=== PATIENT | female | born 1965 | race Caucasian/White ===

== ENCOUNTER 2017-06-02 21:13 | Emergency (ER) | payer MEDICARE, OTHER ==
[~2017-06-02] VITALS: Ht 167.6 cm; Wt 117.6 kg
[~2017-06-02 21:13] MED LIST: ALBU18HF2 INH; ALBU8.5H8 IH; AZIT250T PO; CLIN-80 PO; DULO-31 PO; ERYT-111 PO; FLUT16SP26 BOTHNARES; HYDR25TA4 PO; LEVO150T62 PO; LYR25C PO; METF500T PO; METO50TA7 PO; TIOT18CA7 IH; TOP100T PO; TRAM50TA2 PO; ZOC40T PO
[2017-06-02 21:24] VITALS: BP 145/75
[2017-06-02] MEDS ORDERED: BUPIVAcaine/PF 2.5 mg/ml (0.25%) 30ml vial IJ ONE (22:05)
== END 2017-06-02 23:46 | disposition home or self-care (01) ==
LOC: ER 21:14
DX: L02.416 Cutaneous abscess of left lower limb (principal); G62.9 Polyneuropathy, unspecified; E78.00 Pure hypercholesterolemia, unspecified; I10 Essential (primary) hypertension; J44.9 Chronic obstructive pulmonary disease, unspecified; E11.9 Type 2 diabetes mellitus without complications; M19.90 Unspecified osteoarthritis, unspecified site; G89.29 Other chronic pain; Z86.718 Personal history of other venous thrombosis and embolism; Z86.711 Personal history of pulmonary embolism; Z86.14 Personal history of Methicillin resistant Staphylococcus aureus infection; Z98.890 Other specified postprocedural states; Z90.49 Acquired absence of other specified parts of digestive tract; Z88.8 Allergy status to other drugs, medicaments and biological substances; Z88.2 Allergy status to sulfonamides; Z88.1 Allergy status to other antibiotic agents; Z79.899 Other long term (current) drug therapy
CPT/HCPCS: 10060; 99283; A6449; J3490

== ENCOUNTER 2017-08-16 19:29 | Emergency (ER) | payer MEDICARE, OTHER ==
[~2017-08-16] VITALS: Ht 167.6 cm; Wt 123.0 kg
[~2017-08-16 19:29] MED LIST changes: -CLIN-80 PO; +CLIN300C85 PO
[2017-08-16 19:35] VITALS: BP 132/68
== END 2017-08-16 21:41 | disposition home or self-care (01) ==
LOC: ER 19:29
DX: Z48.01 Encounter for change or removal of surgical wound dressing (principal); I10 Essential (primary) hypertension; J44.9 Chronic obstructive pulmonary disease, unspecified; E11.40 Type 2 diabetes mellitus with diabetic neuropathy, unspecified; G89.29 Other chronic pain; E78.00 Pure hypercholesterolemia, unspecified; Z79.84 Long term (current) use of oral hypoglycemic drugs; Z90.49 Acquired absence of other specified parts of digestive tract; Z90.710 Acquired absence of both cervix and uterus; Z98.890 Other specified postprocedural states; Z87.891 Personal history of nicotine dependence; Z88.2 Allergy status to sulfonamides; Z88.1 Allergy status to other antibiotic agents; Z79.899 Other long term (current) drug therapy
CPT/HCPCS: 99283; A6266

== ENCOUNTER 2018-06-14 08:44 | Day surgery (SDC) | payer MEDICARE, MEDICAID ==
[2018-06-14] VITALS (8 sets, daily range): BP systolic 116–146; BP diastolic 58–79
[~2018-06-14] VITALS: Ht 167.6 cm; Wt 130.1 kg
[~2018-06-14 08:44] MED LIST changes: +CLIN-96 PO; -CLIN300C85 PO; +LIDOcaine 1% 30ml preserv. free vial SQ STA
[2018-06-14] MEDS ORDERED: FURO-150 PO (09:34)
[2018-06-14] MEDS ORDERED: LITH300C PO (09:34)
[2018-06-14] MEDS ORDERED: SIMV40TA PO (09:34)
[2018-06-14] MEDS ORDERED: CARV12.5 PO (09:34)
[2018-06-14] MEDS ORDERED: POTA8CAP9 PO (09:34)
[2018-06-14] MEDS ORDERED: HYDR25TA4 PO (09:34)
[2018-06-14] MEDS ORDERED: ASPI81TA52 PO (09:34)
[2018-06-14] MEDS ORDERED: BUPR300T53 PO (09:34)
[2018-06-14] MEDS ORDERED: LOSA100T57 PO (09:34)
[2018-06-14] MEDS ORDERED: TRAZ-251 PO (09:34)
[2018-06-14] MEDS ORDERED: LEVO150T8 PO (09:34)
[2018-06-14] MEDS ORDERED: TIOT4MIS5 (09:34)
[2018-06-14] MEDS ORDERED: VORT10TA PO (09:34)
[2018-06-14] MEDS ORDERED: GABA-530 PO (09:34)
[2018-06-14] MEDS ORDERED: ALBU18HF2 INH (09:34)
== END 2018-06-14 12:10 | disposition home or self-care (01) ==
LOC: SSTAY O 08:44
PROVIDERS: ATTEND Radiology Diagnostic Radiology
DX: M79.89 Other specified soft tissue disorders (principal); G62.9 Polyneuropathy, unspecified; E78.00 Pure hypercholesterolemia, unspecified; I10 Essential (primary) hypertension; J44.9 Chronic obstructive pulmonary disease, unspecified; Z87.01 Personal history of pneumonia (recurrent); G47.30 Sleep apnea, unspecified; E11.9 Type 2 diabetes mellitus without complications; M19.90 Unspecified osteoarthritis, unspecified site; G89.29 Other chronic pain; F41.9 Anxiety disorder, unspecified; F31.9 Bipolar disorder, unspecified; E66.01 Morbid (severe) obesity due to excess calories; Z90.49 Acquired absence of other specified parts of digestive tract; Z98.890 Other specified postprocedural states; Z87.891 Personal history of nicotine dependence; Z90.710 Acquired absence of both cervix and uterus; Z88.8 Allergy status to other drugs, medicaments and biological substances; Z88.1 Allergy status to other antibiotic agents; Z88.2 Allergy status to sulfonamides
CPT/HCPCS: 20206; 76942; J3490; 27470; 88173; 88305

== ENCOUNTER 2018-08-12 21:49 | Emergency (ER) | payer MEDICARE, MEDICAID ==
[~2018-08-12] VITALS: Ht 167.6 cm; Wt 131.0 kg
[~2018-08-12 21:49] MED LIST changes: -ALBU8.5H8 IH; +ASPI81TA52 PO; -AZIT250T PO; +BUPR300T53 PO; +CARV12.5 PO; -CLIN-96 PO; -DULO-31 PO; -ERYT-111 PO; -FLUT16SP26 BOTHNARES; +FURO-150 PO; +GABA-530 PO; -LEVO150T62 PO; +LEVO150T8 PO; -LIDOcaine 1% 30ml preserv. free vial SQ STA; +LITH300C PO; +LOSA100T57 PO; -LYR25C PO; -METF500T PO; -METO50TA7 PO; +POTA8CAP9 PO; +SIMV40TA PO; -TIOT18CA7 IH; +TIOT4MIS5; -TOP100T PO; -TRAM50TA2 PO; +TRAZ-251 PO; +VORT10TA PO; -ZOC40T PO
[2018-08-12 22:09] VITALS: BP 125/86
== END 2018-08-13 00:02 | disposition home or self-care (01) ==
LOC: ER 21:50
DX: E87.8 Other disorders of electrolyte and fluid balance, not elsewhere classified (principal); F43.9 Reaction to severe stress, unspecified; E78.00 Pure hypercholesterolemia, unspecified; I10 Essential (primary) hypertension; J44.9 Chronic obstructive pulmonary disease, unspecified; G47.30 Sleep apnea, unspecified; E11.9 Type 2 diabetes mellitus without complications; E03.9 Hypothyroidism, unspecified; M19.90 Unspecified osteoarthritis, unspecified site; G89.29 Other chronic pain; Z86.14 Personal history of Methicillin resistant Staphylococcus aureus infection; Z90.49 Acquired absence of other specified parts of digestive tract; Z90.710 Acquired absence of both cervix and uterus; Z88.2 Allergy status to sulfonamides; Z86.711 Personal history of pulmonary embolism; Z88.1 Allergy status to other antibiotic agents; Z88.8 Allergy status to other drugs, medicaments and biological substances; Z79.82 Long term (current) use of aspirin; Z79.899 Other long term (current) drug therapy; Z98.890 Other specified postprocedural states
CPT/HCPCS: 82948; 93005; 99283

== ENCOUNTER 2019-01-17 13:44 | Emergency (ER) | payer MEDICARE, MEDICAID ==
[~2019-01-17] VITALS: Ht 167.6 cm; Wt 133.0 kg
[~2019-01-17 13:44] MED LIST changes: +POTA8CAP20 PO; -POTA8CAP9 PO
[2019-01-17 14:44] LABS: BASOPHILS # (AUTO) 0.2 X10'3 (0-0.2); BASOPHILS % (AUTO) 1.3 % (0-1); EOSINOPHILS # (AUTO) 0.2 X10'3 (0-0.9); EOSINOPHILS % (AUTO) 1.4 % (0-6); HEMATOCRIT 38.9 % (35.0-45.0); HEMOGLOBIN 13.5 g/dl (12.0-16.0); LYMPHOCYTES # (AUTO) 3.4 X10'3 (1.1-4.8); LYMPHOCYTES % (AUTO) 24.8 % (21-51); MEAN CORPUSCULAR HEMOGLOBIN 34.8 PG (27.0-31.0); MEAN CORPUSCULAR HGB CONC 34.6 g/dL (33.0-36.5); MEAN CORPUSCULAR VOLUME 100.8 FL (78-98); MEAN PLATELET VOLUME 8.2 FL (7.4-10.4); MONOCYTES # (AUTO) 0.7 X10'3 (0-0.9); NEUTROPHILS # (AUTO) 9.4 X10'3 (1.8-7.7); NEUTROPHILS % (AUTO) 67.5 % (42-75); PLATELET COUNT 261 X10'3 (140-440); RED BLOOD COUNT 3.86 X10'6 (4.20-5.60); RED CELL DISTRIBUTION WIDTH 14.3 % (11.5-14.5); WHITE BLOOD COUNT 13.9 X10'3 (4.5-11.0)
[2019-01-17 14:53] LABS: ALBUMIN 3.8 G/DL (3.4-5.0); ANION GAP 9 (8-16); BILIRUBIN,TOTAL 0.4 MG/DL (0.1-1.0); BLOOD UREA NITROGEN 16 MG/DL (7-18); BUN/CREATININE RATIO 15.8 (6.6-38.0); CALCIUM 9.4 MG/DL (8.5-10.1); CHLORIDE 98 MMOL/L (99-107); CREATININE 1.01 MG/DL (0.40-0.90); GLUCOSE 276 MG/DL (70-104); POTASSIUM 3.4 MMOL/L (3.5-5.1); SODIUM 138 MMOL/L (135-145); TOTAL CARBON DIOXIDE 30.9 MMOL/L (24-32); TOTAL PROTEIN 7.1 G/DL (6.4-8.2); eGFR 57 ML/MIN
[2019-01-17 14:54] LABS: ALANINE AMINOTRANSFERASE 37 U/L (12-78); ALBUMIN/GLOBULIN RATIO 1.2 (1.1-1.5); ALKALINE PHOSPHATASE 79 IU/L (46-116); ASPARTATE AMINO TRANSFERASE 12 U/L (10-37)
[2019-01-17] MEDS ORDERED: ipratropium/albuterol 3ml nebule NEB ONE (15:30)
[2019-01-17 15:56] VITALS: BP 132/91
== END 2019-01-17 16:00 | disposition home or self-care (01) ==
LOC: ER 13:45
DX: J44.1 Chronic obstructive pulmonary disease with (acute) exacerbation (principal); E11.42 Type 2 diabetes mellitus with diabetic polyneuropathy; E78.00 Pure hypercholesterolemia, unspecified; I10 Essential (primary) hypertension; G47.30 Sleep apnea, unspecified; M19.90 Unspecified osteoarthritis, unspecified site; G89.29 Other chronic pain; F41.9 Anxiety disorder, unspecified; F31.9 Bipolar disorder, unspecified; F17.200 Nicotine dependence, unspecified, uncomplicated; Z86.711 Personal history of pulmonary embolism; Z86.14 Personal history of Methicillin resistant Staphylococcus aureus infection; Z90.49 Acquired absence of other specified parts of digestive tract; Z90.710 Acquired absence of both cervix and uterus; Z98.890 Other specified postprocedural states; Z60.2 Problems related to living alone; Z88.2 Allergy status to sulfonamides; Z88.1 Allergy status to other antibiotic agents; Z88.8 Allergy status to other drugs, medicaments and biological substances; Z79.82 Long term (current) use of aspirin; Z79.899 Other long term (current) drug therapy
CPT/HCPCS: 36415; 71045; 80053; 84484; 85025; 93005; 94640; 94760; 99284

== ENCOUNTER 2019-04-22 13:14 | Emergency (ER) | payer MEDICARE, MEDICAID ==
[~2019-04-22] VITALS: Ht 167.6 cm; Wt 129.6 kg
[2019-04-22] MEDS ORDERED: morphine 4 MG/ML inj SYRINge IV PRN (13:50)
[2019-04-22] MEDS ORDERED: normal saline 1000ML IV soln IVB ONE (13:50)
[2019-04-22] MEDS ORDERED: ondansetron/PF 4mg/2ml inj IV ONE (13:50)
[2019-04-22 14:47] LABS: BASOPHILS # (AUTO) 0.1 X10'3 (0-0.2); BASOPHILS % (AUTO) 0.7 % (0-1); EOSINOPHILS # (AUTO) 0.1 X10'3 (0-0.9); EOSINOPHILS % (AUTO) 1.2 % (0-6); HEMATOCRIT 37.2 % (35.0-45.0); HEMOGLOBIN 12.8 g/dl (12.0-16.0); LYMPHOCYTES # (AUTO) 1.6 X10'3 (1.1-4.8); LYMPHOCYTES % (AUTO) 14.1 % (21-51); MEAN CORPUSCULAR HEMOGLOBIN 33.9 PG (27.0-31.0); MEAN CORPUSCULAR HGB CONC 34.4 g/dL (33.0-36.5); MEAN CORPUSCULAR VOLUME 98.4 FL (78-98); MEAN PLATELET VOLUME 7.6 FL (7.4-10.4); MONOCYTES # (AUTO) 0.3 X10'3 (0-0.9); NEUTROPHILS # (AUTO) 8.9 X10'3 (1.8-7.7); PLATELET COUNT 236 X10'3 (140-440); RED BLOOD COUNT 3.78 X10'6 (4.20-5.60); RED CELL DISTRIBUTION WIDTH 14.8 % (11.5-14.5)
[2019-04-22 15:01] LABS: ALANINE AMINOTRANSFERASE 26 U/L (12-78); ALBUMIN/GLOBULIN RATIO 1.3 (1.1-1.5); ALKALINE PHOSPHATASE 71 IU/L (46-116); ANION GAP 5 (8-16); ASPARTATE AMINO TRANSFERASE 14 U/L (10-37); BILIRUBIN,TOTAL 0.4 MG/DL (0.1-1.0); BLOOD UREA NITROGEN 13 MG/DL (7-18); BUN/CREATININE RATIO 15.9 (6.6-38.0); CALCIUM 10.2 MG/DL (8.5-10.1); CHLORIDE 105 MMOL/L (99-107); CREATININE 0.82 MG/DL (0.40-0.90); GLUCOSE 190 MG/DL (70-104); POTASSIUM 4.3 MMOL/L (3.5-5.1); SODIUM 141 MMOL/L (135-145); TOTAL CARBON DIOXIDE 30.6 MMOL/L (24-32); TOTAL PROTEIN 7.2 G/DL (6.4-8.2); eGFR 73 ML/MIN
[2019-04-22 15:06] LABS: LIPASE 588 U/L (73-393); TROPONIN I < 0.04 NG/ML (0.0-0.05)
[2019-04-22 15:30] LABS: TRIGLYCERIDES 159 MG/DL (20-135)
[2019-04-22 17:30] VITALS: BP 158/71
== END 2019-04-22 17:31 | disposition home or self-care (01) ==
LOC: ER 13:15
DX: K85.90 Acute pancreatitis without necrosis or infection, unspecified (principal); E11.42 Type 2 diabetes mellitus with diabetic polyneuropathy; E78.00 Pure hypercholesterolemia, unspecified; I10 Essential (primary) hypertension; J44.9 Chronic obstructive pulmonary disease, unspecified; G47.30 Sleep apnea, unspecified; M19.90 Unspecified osteoarthritis, unspecified site; G89.29 Other chronic pain; F41.9 Anxiety disorder, unspecified; F31.9 Bipolar disorder, unspecified; Z90.49 Acquired absence of other specified parts of digestive tract; Z86.14 Personal history of Methicillin resistant Staphylococcus aureus infection; Z90.710 Acquired absence of both cervix and uterus; Z98.890 Other specified postprocedural states; Z86.711 Personal history of pulmonary embolism; Z88.2 Allergy status to sulfonamides; Z88.1 Allergy status to other antibiotic agents; Z88.8 Allergy status to other drugs, medicaments and biological substances; Z79.82 Long term (current) use of aspirin; Z79.899 Other long term (current) drug therapy
CPT/HCPCS: 36415; 74176; 80053; 83605; 83690; 84145; 84478; 84484; 85025; 93005; 96374; 96375; 99285; J2270; J2405; J7030

== ENCOUNTER 2019-05-07 16:20 | Emergency (ER) | payer MEDICARE, MEDICAID ==
[~2019-05-07] VITALS: Ht 167.6 cm; Wt 128.0 kg
[2019-05-07 16:33] VITALS: BP 145/105
[2019-05-07 17:17] LABS: BASOPHILS # (AUTO) 0.1 X10'3 (0-0.2); BASOPHILS % (AUTO) 0.5 % (0-1); EOSINOPHILS % (AUTO) 0.2 % (0-6); HEMATOCRIT 39.8 % (35.0-45.0); HEMOGLOBIN 13.5 g/dl (12.0-16.0); LYMPHOCYTES % (AUTO) 6.9 % (21-51); MEAN CORPUSCULAR HEMOGLOBIN 32.8 PG (27.0-31.0); MEAN CORPUSCULAR HGB CONC 33.9 g/dL (33.0-36.5); MEAN PLATELET VOLUME 7.7 FL (7.4-10.4); MONOCYTES # (AUTO) 0.2 X10'3 (0-0.9); MONOCYTES % (AUTO) 1.4 % (2-12); NEUTROPHILS # (AUTO) 12.9 X10'3 (1.8-7.7); PLATELET COUNT 226 X10'3 (140-440); RED CELL DISTRIBUTION WIDTH 14.2 % (11.5-14.5); WHITE BLOOD COUNT 14.1 X10'3 (4.5-11.0)
[2019-05-07 17:35] LABS: ALANINE AMINOTRANSFERASE 22 U/L (12-78); ALBUMIN 4.3 G/DL (3.4-5.0); ALBUMIN/GLOBULIN RATIO 1.3 (1.1-1.5); ALKALINE PHOSPHATASE 70 IU/L (46-116); ANION GAP 8 (8-16); ASPARTATE AMINO TRANSFERASE 15 U/L (10-37); BILIRUBIN,TOTAL 0.8 MG/DL (0.1-1.0); BLOOD UREA NITROGEN 7 MG/DL (7-18); BUN/CREATININE RATIO 9.1 (6.6-38.0); CALCIUM 9.9 MG/DL (8.5-10.1); CHLORIDE 100 MMOL/L (99-107); CREATININE 0.77 MG/DL (0.40-0.90); GLUCOSE 175 MG/DL (70-104); LIPASE 149 U/L (73-393); POTASSIUM 3.6 MMOL/L (3.5-5.1); SODIUM 136 MMOL/L (135-145); TOTAL CARBON DIOXIDE 27.7 MMOL/L (24-32); TOTAL PROTEIN 7.7 G/DL (6.4-8.2); eGFR 78 ML/MIN
[2019-05-07 17:39] LABS: CLARITY,URINE SLIGHTLY CLOUDY (Clear); COLOR,URINE YELLOW (Yellow); GLUCOSE, URINE NEGATIVE (Neg); KETONES,URINE TRACE mg/dl (Neg); LEUKOCYTE ESTERASE ,URINE NEGATIVE (Neg); NITRITES, URINE NEGATIVE (Neg); OCCULT BLOOD,URINE TRACE-INTACT (Neg); PROTEIN,URINE 100 mg/dl (Neg); URINE HCG NEGATIVE (NEG); UROBILINOGEN,URINE 0.2 E.U/dL (0.2-1.0)
[2019-05-07 17:41] LABS: UA COLLECTION TYPE VOIDED
[2019-05-07 17:48] LABS: SQUAMOUS EPITHELIAL CELL,UR MANY /LPF (FEW)
[2019-05-07 17:49] LABS: MUCUS STRANDS FEW /LPF (Neg); TRANSITIONAL EPI CELLS,URINE FEW /HPF
[2019-05-07 17:50] LABS: WBC,URINE 0-4 /HPF (0-4)
[2019-05-07 17:51] LABS: BACTERIA,URINE 2+ /HPF (Neg); YEAST FEW /HPF (NEGATIVE)
--- NOTE | 2019-05-07 18:33 | NUR ---
PT STATING THAT SHE NO LONGER WANTS TO [facility] TO BE SEEN. PT C/O ABD PAIN SECONDARY TO PANCREATITIS. ROXANNA RN NOTIFIED. TIRE SERVICE TECHNICIAN WENT BACK TO THE LOBBY TO INFORM SHE THAT SHE WILL COME BACK [place], PT HAD LEFT THE ER LOBBY AND WAS NOT SEEN OUTSIDE. ROXANNA RN NOTIFIED
== END 2019-05-07 18:35 | disposition left against medical advice (07) ==
LOC: ER 16:21
DX: R10.9 Unspecified abdominal pain (principal); Z53.21 Procedure and treatment not carried out due to patient leaving prior to being seen by health care provider
CPT/HCPCS: 36415; 80053; 81001; 81025; 83690; 85025

== ENCOUNTER 2019-05-09 11:12 | Emergency (ER) | payer MEDICARE, MEDICAID ==
[~2019-05-09] VITALS: Ht 167.6 cm; Wt 124.9 kg
[2019-05-09 11:48] LABS: CLARITY,URINE CLOUDY (Clear); COLOR,URINE YELLOW (Yellow); GLUCOSE, URINE NEGATIVE (Neg); KETONES,URINE NEGATIVE (Neg); LEUKOCYTE ESTERASE ,URINE NEGATIVE (Neg); NITRITES, URINE NEGATIVE (Neg); OCCULT BLOOD,URINE TRACE-INTACT (Neg); PROTEIN,URINE TRACE mg/dl (Neg); UROBILINOGEN,URINE 0.2 E.U/dL (0.2-1.0)
[2019-05-09 11:50] LABS: UA COLLECTION TYPE CLN CATCH MIDSTREAM
[2019-05-09 11:51] LABS: BASOPHILS # (AUTO) 0.1 X10'3 (0-0.2); BASOPHILS % (AUTO) 0.5 % (0-1); EOSINOPHILS % (AUTO) 0.1 % (0-6); HEMATOCRIT 42.7 % (35.0-45.0); HEMOGLOBIN 14.7 g/dl (12.0-16.0); LYMPHOCYTES # (AUTO) 2.3 X10'3 (1.1-4.8); LYMPHOCYTES % (AUTO) 15.9 % (21-51); MEAN CORPUSCULAR HEMOGLOBIN 33.1 PG (27.0-31.0); MEAN CORPUSCULAR HGB CONC 34.4 g/dL (33.0-36.5); MEAN CORPUSCULAR VOLUME 96.1 FL (78-98); MEAN PLATELET VOLUME 7.6 FL (7.4-10.4); MONOCYTES # (AUTO) 0.6 X10'3 (0-0.9); MONOCYTES % (AUTO) 4.1 % (2-12); NEUTROPHILS # (AUTO) 11.4 X10'3 (1.8-7.7); NEUTROPHILS % (AUTO) 79.4 % (42-75); PLATELET COUNT 252 X10'3 (140-440); RED BLOOD COUNT 4.44 X10'6 (4.20-5.60); RED CELL DISTRIBUTION WIDTH 14.6 % (11.5-14.5); WHITE BLOOD COUNT 14.3 X10'3 (4.5-11.0)
[2019-05-09 11:55] LABS: BACTERIA,URINE 2+ /HPF (Neg); MUCUS STRANDS FEW /LPF (Neg); SQUAMOUS EPITHELIAL CELL,UR MANY /LPF (FEW)
[2019-05-09 11:56] LABS: RBC,URINE 0-2 /HPF (0-2); WBC,URINE 0-4 /HPF (0-4); YEAST MODERATE /HPF (NEGATIVE)
[2019-05-09 12:05] LABS: ALANINE AMINOTRANSFERASE 24 U/L (12-78); ALBUMIN 4.5 G/DL (3.4-5.0); ALBUMIN/GLOBULIN RATIO 1.4 (1.1-1.5); ALKALINE PHOSPHATASE 67 IU/L (46-116); AMYLASE 31 U/L (25-115); ANION GAP 10 (8-16); ASPARTATE AMINO TRANSFERASE 16 U/L (10-37); BILIRUBIN,TOTAL 0.8 MG/DL (0.1-1.0); BLOOD UREA NITROGEN 9 MG/DL (7-18); BUN/CREATININE RATIO 11.3 (6.6-38.0); CALCIUM 9.5 MG/DL (8.5-10.1); CHLORIDE 99 MMOL/L (99-107); GLUCOSE 140 MG/DL (70-104); LIPASE 125 U/L (73-393); POTASSIUM 3.1 MMOL/L (3.5-5.1); SODIUM 137 MMOL/L (135-145); TOTAL CARBON DIOXIDE 27.7 MMOL/L (24-32); TOTAL PROTEIN 7.7 G/DL (6.4-8.2); eGFR 75 ML/MIN
[2019-05-09] MEDS ORDERED: morphine 4 MG/ML inj SYRINge IV PRN (12:50)
[2019-05-09] MEDS ORDERED: ondansetron/PF 4mg/2ml inj IV ONE (12:50)
[2019-05-09] MEDS ORDERED: normal saline 1000ML IV soln IVB ONE (12:50)
[2019-05-09] MEDS ORDERED: iohexol 300mg/ml 100ml inj. ONE (12:58)
[2019-05-09] MEDS ORDERED: NAPR-56 PO (14:32)
[2019-05-09] MEDS ORDERED: HYDR-4383 PO (14:32)
[2019-05-09] MEDS ORDERED: ONDA4TAB6 PO (14:32)
[2019-05-09 15:32] VITALS: BP 145/73
[2019-05-10] MEDS ORDERED: MESSAGE TO NURSING PO NR (10:00)
[2019-05-11] MEDS ORDERED: GABA600T13 PO (15:35)
[2019-05-11] MEDS ORDERED: TIOT4MIS3 IH (15:55)
[2019-05-11] MEDS ORDERED: DICL100G30 TP (15:55)
[2019-05-11] MEDS ORDERED: ATOR40TA72 PO (15:55)
[2019-05-11] MEDS ORDERED: AMLO2.5T5 PO (15:55)
[2019-05-11] MEDS ORDERED: ADAL40PE SQ (15:55)
[2019-05-14] MEDS ORDERED: LACT1CAP26 PO (09:33)
[2019-05-14] MEDS ORDERED: AMOX-580 PO (09:33)
[2019-05-14] MEDS ORDERED: METF-950 PO (09:33)
== END 2019-05-09 15:40 | disposition home or self-care (01) ==
LOC: ER 11:13
DX: R10.33 Periumbilical pain (principal); R11.2 Nausea with vomiting, unspecified; E78.00 Pure hypercholesterolemia, unspecified; I10 Essential (primary) hypertension; E11.40 Type 2 diabetes mellitus with diabetic neuropathy, unspecified; J44.9 Chronic obstructive pulmonary disease, unspecified; G89.29 Other chronic pain; F31.9 Bipolar disorder, unspecified; F41.9 Anxiety disorder, unspecified; M19.90 Unspecified osteoarthritis, unspecified site; Z86.711 Personal history of pulmonary embolism; Z86.19 Personal history of other infectious and parasitic diseases; Z90.89 Acquired absence of other organs; Z90.49 Acquired absence of other specified parts of digestive tract; Z90.710 Acquired absence of both cervix and uterus; Z88.1 Allergy status to other antibiotic agents; Z88.2 Allergy status to sulfonamides; Z79.82 Long term (current) use of aspirin; Z79.899 Other long term (current) drug therapy
CPT/HCPCS: 96361; 96374; 96375; 99285; J2270; J2405; J7030; Q9967; 36415; 74177; 80053; 81001; 82150; 83690; 85025; 99284

== ENCOUNTER 2019-08-21 07:37 | Emergency (ER) | payer MEDICARE, MEDICAID ==
[~2019-08-21] VITALS: Ht 167.6 cm; Wt 125.0 kg
[~2019-08-21 07:37] MED LIST changes: +ADAL40PE SQ; +AMLO2.5T5 PO; +ATOR40TA72 PO; +DICL100G30 TP; -GABA-530 PO; +GABA600T13 PO; +LACT1CAP26 PO; -SIMV40TA PO; +TIOT4MIS3 IH; -TIOT4MIS5
[2019-08-21 08:18] LABS: BASOPHILS # (AUTO) 0.2 X10'3 (0-0.2); BASOPHILS % (AUTO) 0.9 % (0-1); EOSINOPHILS # (AUTO) 0.1 X10'3 (0-0.9); EOSINOPHILS % (AUTO) 0.5 % (0-6); HEMATOCRIT 41.6 % (35.0-45.0); HEMOGLOBIN 14.1 g/dl (12.0-16.0); LYMPHOCYTES # (AUTO) 1.5 X10'3 (1.1-4.8); LYMPHOCYTES % (AUTO) 8.5 % (21-51); MEAN CORPUSCULAR HEMOGLOBIN 34.3 PG (27.0-31.0); MEAN CORPUSCULAR HGB CONC 33.9 g/dL (33.0-36.5); MEAN CORPUSCULAR VOLUME 101.1 FL (78-98); MEAN PLATELET VOLUME 7.4 FL (7.4-10.4); MONOCYTES # (AUTO) 0.6 X10'3 (0-0.9); MONOCYTES % (AUTO) 3.3 % (2-12); NEUTROPHILS # (AUTO) 15.2 X10'3 (1.8-7.7); NEUTROPHILS % (AUTO) 86.8 % (42-75); PLATELET COUNT 259 X10'3 (140-440); RED BLOOD COUNT 4.12 X10'6 (4.20-5.60); RED CELL DISTRIBUTION WIDTH 15.1 % (11.5-14.5); WHITE BLOOD COUNT 17.5 X10'3 (4.5-11.0)
[2019-08-21 08:18] LABS: CLARITY,URINE CLOUDY (Clear); COLOR,URINE YELLOW (Yellow); GLUCOSE, URINE NEGATIVE (Neg); KETONES,URINE NEGATIVE (Neg); LEUKOCYTE ESTERASE ,URINE NEGATIVE (Neg); NITRITES, URINE NEGATIVE (Neg); OCCULT BLOOD,URINE NEGATIVE (Neg); PH,URINE 7.5 (4.8-8.0); PROTEIN,URINE 100 mg/dl (Neg); UA COLLECTION TYPE CLN CATCH MIDSTREAM
[2019-08-21 08:20] LABS: URINE HCG NEGATIVE (NEG)
[2019-08-21 08:24] LABS: SQUAMOUS EPITHELIAL CELL,UR MANY /LPF (FEW)
[2019-08-21 08:27] LABS: BACTERIA,URINE 2+ /HPF (Neg); RBC,URINE 0-2 /HPF (0-2)
[2019-08-21 08:28] LABS: YEAST FEW /HPF (NEGATIVE)
[2019-08-21 08:29] LABS: WBC,URINE 0-4 /HPF (0-4)
[2019-08-21 08:34] LABS: ALANINE AMINOTRANSFERASE 24 U/L (12-78); ALBUMIN 4.4 G/DL (3.4-5.0); ALBUMIN/GLOBULIN RATIO 1.3 (1.1-1.5); ALKALINE PHOSPHATASE 65 IU/L (46-116); ANION GAP 8 (8-16); ASPARTATE AMINO TRANSFERASE 13 U/L (10-37); BILIRUBIN,TOTAL 0.5 MG/DL (0.1-1.0); BLOOD UREA NITROGEN 13 MG/DL (7-18); BUN/CREATININE RATIO 14.1 (6.6-38.0); CALCIUM 10.2 MG/DL (8.5-10.1); CHLORIDE 100 MMOL/L (99-107); CREATININE 0.92 MG/DL (0.40-0.90); GLUCOSE 153 MG/DL (70-104); LIPASE 206 U/L (73-393); SODIUM 136 MMOL/L (135-145); TOTAL CARBON DIOXIDE 28.1 MMOL/L (24-32); TOTAL PROTEIN 7.7 G/DL (6.4-8.2); eGFR 64 ML/MIN
[2019-08-21] MEDS ORDERED: sucralfate 1gm/10ml UD suspension PO STA (08:39)
[2019-08-21] MEDS ORDERED: mag hydrox/Alum hydrox/simeth 30ml oral suspension PO ONE (08:40)
[2019-08-21] MEDS ORDERED: LIDOcaine Viscous 15ml cup MM ONE (08:40)
[2019-08-21 10:02] VITALS: BP 186/77
== END 2019-08-21 10:03 | disposition home or self-care (01) ==
LOC: ER 07:37
DX: D72.829 Elevated white blood cell count, unspecified (principal); E11.42 Type 2 diabetes mellitus with diabetic polyneuropathy; E78.00 Pure hypercholesterolemia, unspecified; I10 Essential (primary) hypertension; J44.9 Chronic obstructive pulmonary disease, unspecified; G47.30 Sleep apnea, unspecified; G89.29 Other chronic pain; F41.9 Anxiety disorder, unspecified; F31.9 Bipolar disorder, unspecified; F17.200 Nicotine dependence, unspecified, uncomplicated; F12.90 Cannabis use, unspecified, uncomplicated; Z86.711 Personal history of pulmonary embolism; Z86.14 Personal history of Methicillin resistant Staphylococcus aureus infection; Z90.49 Acquired absence of other specified parts of digestive tract; Z90.710 Acquired absence of both cervix and uterus; Z98.890 Other specified postprocedural states; Z60.2 Problems related to living alone; Z88.8 Allergy status to other drugs, medicaments and biological substances; Z88.2 Allergy status to sulfonamides; Z88.1 Allergy status to other antibiotic agents; Z79.82 Long term (current) use of aspirin; Z79.899 Other long term (current) drug therapy
CPT/HCPCS: 36415; 80053; 81001; 81025; 83690; 85025; 99284

== ENCOUNTER 2019-08-22 03:35 | Emergency (ER) | payer MEDICARE, MEDICAID ==
[~2019-08-22] VITALS: Ht 167.6 cm; Wt 1.2 kg
[2019-08-22] MEDS ORDERED: morphine 4 MG/ML inj SYRINge IV PRN (03:40)
[2019-08-22] MEDS ORDERED: ondansetron/PF 4mg/2ml inj IV ONE (03:40)
[2019-08-22] MEDS ORDERED: normal saline 1000ML IV soln IVB ONE (03:40)
[2019-08-22] MEDS ORDERED: fentaNYL/PF 50MCG/1 ML 2ML syringe IV ONE (03:45)
[2019-08-22 04:11] LABS: CLARITY,URINE SLIGHTLY CLOUDY (Clear); COLOR,URINE YELLOW (Yellow); GLUCOSE, URINE NEGATIVE (Neg); KETONES,URINE NEGATIVE (Neg); LEUKOCYTE ESTERASE ,URINE NEGATIVE (Neg); NITRITES, URINE NEGATIVE (Neg); OCCULT BLOOD,URINE NEGATIVE (Neg); PROTEIN,URINE 30 mg/dl (Neg); UROBILINOGEN,URINE 0.2 E.U/dL (0.2-1.0)
[2019-08-22 04:11] LABS: BASOPHILS % (AUTO) 0.3 % (0-1); EOSINOPHILS # (AUTO) 0.1 X10'3 (0-0.9); EOSINOPHILS % (AUTO) 0.4 % (0-6); HEMATOCRIT 41.7 % (35.0-45.0); LYMPHOCYTES # (AUTO) 1.7 X10'3 (1.1-4.8); LYMPHOCYTES % (AUTO) 11.3 % (21-51); MEAN CORPUSCULAR HGB CONC 33.6 g/dL (33.0-36.5); MEAN CORPUSCULAR VOLUME 101.1 FL (78-98); MEAN PLATELET VOLUME 7.4 FL (7.4-10.4); MONOCYTES # (AUTO) 0.8 X10'3 (0-0.9); MONOCYTES % (AUTO) 5.4 % (2-12); NEUTROPHILS # (AUTO) 12.6 X10'3 (1.8-7.7); NEUTROPHILS % (AUTO) 82.6 % (42-75); PLATELET COUNT 258 X10'3 (140-440); RED BLOOD COUNT 4.12 X10'6 (4.20-5.60); RED CELL DISTRIBUTION WIDTH 15.5 % (11.5-14.5); WHITE BLOOD COUNT 15.3 X10'3 (4.5-11.0)
[2019-08-22 04:14] LABS: UA COLLECTION TYPE CLN CATCH MIDSTREAM
[2019-08-22 04:16] LABS: BACTERIA,URINE 2+ /HPF (Neg); RBC,URINE NONE SEEN /HPF (0-2); SQUAMOUS EPITHELIAL CELL,UR MANY /LPF (FEW); WBC,URINE NONE SEEN /HPF (0-4)
[2019-08-22 04:25] LABS: ALANINE AMINOTRANSFERASE 23 U/L (12-78); ALBUMIN/GLOBULIN RATIO 1.3 (1.1-1.5); ALKALINE PHOSPHATASE 61 IU/L (46-116); ANION GAP 6 (8-16); ASPARTATE AMINO TRANSFERASE 14 U/L (10-37); BILIRUBIN,TOTAL 0.6 MG/DL (0.1-1.0); BLOOD UREA NITROGEN 12 MG/DL (7-18); BUN/CREATININE RATIO 12.2 (6.6-38.0); CALCIUM 9.5 MG/DL (8.5-10.1); CHLORIDE 102 MMOL/L (99-107); CREATININE 0.98 MG/DL (0.40-0.90); GLUCOSE 144 MG/DL (70-104); LIPASE 207 U/L (73-393); POTASSIUM 3.6 MMOL/L (3.5-5.1); SODIUM 138 MMOL/L (135-145); TOTAL CARBON DIOXIDE 30.5 MMOL/L (24-32); TOTAL PROTEIN 7.1 G/DL (6.4-8.2); eGFR 59 ML/MIN
[2019-08-22 05:25] VITALS: BP 146/72
== END 2019-08-22 04:45 | disposition home or self-care (01) ==
LOC: ER 03:35
DX: R10.84 Generalized abdominal pain (principal); E11.42 Type 2 diabetes mellitus with diabetic polyneuropathy; E78.00 Pure hypercholesterolemia, unspecified; I10 Essential (primary) hypertension; J44.9 Chronic obstructive pulmonary disease, unspecified; G47.30 Sleep apnea, unspecified; M19.90 Unspecified osteoarthritis, unspecified site; G89.29 Other chronic pain; F41.9 Anxiety disorder, unspecified; F31.9 Bipolar disorder, unspecified; F12.90 Cannabis use, unspecified, uncomplicated; Z86.711 Personal history of pulmonary embolism; Z86.14 Personal history of Methicillin resistant Staphylococcus aureus infection; Z90.49 Acquired absence of other specified parts of digestive tract; Z90.710 Acquired absence of both cervix and uterus; Z98.890 Other specified postprocedural states; Z88.2 Allergy status to sulfonamides; Z88.8 Allergy status to other drugs, medicaments and biological substances; Z79.82 Long term (current) use of aspirin; Z79.899 Other long term (current) drug therapy
CPT/HCPCS: 36415; 80053; 81001; 83690; 85025; 96374; 96375; 99284; J2405; J3010; J7030

== ENCOUNTER 2019-12-09 08:41 | Emergency (ER) | payer MEDICARE, MEDICAID ==
[~2019-12-09] VITALS: Ht 167.6 cm; Wt 116.1 kg
[2019-12-09 08:51] VITALS: BP 198/105
[2019-12-10] MEDS ORDERED: POTA20TA19 PO (02:36)
[2019-12-10] MEDS ORDERED: HYDR-3965 PO (02:36)
[2019-12-10] MEDS ORDERED: ONDA4TAB6 PO (02:36)
== END 2019-12-09 10:07 | disposition left against medical advice (07) ==
LOC: ER 08:42
DX: R10.9 Unspecified abdominal pain (principal); Z53.21 Procedure and treatment not carried out due to patient leaving prior to being seen by health care provider

== ENCOUNTER 2019-12-09 12:30 | Emergency (ER) | payer MEDICARE, MEDICAID ==
--- NOTE | 2019-12-09 13:38 | NUR ---
Called to triage for a second time, not in lobby
--- NOTE | 2019-12-09 14:12 | NUR ---
Called third time to triage, not in lobby. Pt here earlier this morning and LWBS
[2019-12-10] MEDS ORDERED: HYDR-3965 PO (02:36)
[2019-12-10] MEDS ORDERED: POTA20TA19 PO (02:36)
[2019-12-10] MEDS ORDERED: ONDA4TAB6 PO (02:36)
== END 2019-12-09 14:13 | disposition left against medical advice (07) ==
LOC: ER 12:31
DX: K85.90 Acute pancreatitis without necrosis or infection, unspecified (principal); Z53.21 Procedure and treatment not carried out due to patient leaving prior to being seen by health care provider

== ENCOUNTER 2019-12-10 00:07 | Emergency (ER) | payer MEDICARE, MEDICAID ==
[~2019-12-10] VITALS: Ht 167.6 cm; Wt 100.0 kg
[2019-12-10 00:46] LABS: CLARITY,URINE CLEAR (Clear); COLOR,URINE YELLOW (Yellow); GLUCOSE, URINE NEGATIVE (Neg); KETONES,URINE NEGATIVE (Neg); LEUKOCYTE ESTERASE ,URINE NEGATIVE (Neg); NITRITES, URINE NEGATIVE (Neg); OCCULT BLOOD,URINE SMALL (Neg); PROTEIN,URINE 100 mg/dl (Neg)
[2019-12-10 00:48] LABS: BASOPHILS # (AUTO) 0.1 X10'3 (0-0.2); BASOPHILS % (AUTO) 1.2 % (0-1); EOSINOPHILS # (AUTO) 0.1 X10'3 (0-0.9); EOSINOPHILS % (AUTO) 0.5 % (0-6); HEMATOCRIT 41.9 % (35.0-45.0); HEMOGLOBIN 14.4 g/dl (12.0-16.0); LYMPHOCYTES # (AUTO) 1.2 X10'3 (1.1-4.8); LYMPHOCYTES % (AUTO) 9.6 % (21-51); MEAN CORPUSCULAR HEMOGLOBIN 33.2 PG (27.0-31.0); MEAN CORPUSCULAR HGB CONC 34.4 g/dL (33.0-36.5); MEAN CORPUSCULAR VOLUME 96.5 FL (78-98); MONOCYTES # (AUTO) 0.6 X10'3 (0-0.9); MONOCYTES % (AUTO) 5.2 % (2-12); NEUTROPHILS # (AUTO) 10.5 X10'3 (1.8-7.7); NEUTROPHILS % (AUTO) 83.5 % (42-75); PLATELET COUNT 295 X10'3 (140-440); RED BLOOD COUNT 4.34 X10'6 (4.20-5.60); WHITE BLOOD COUNT 12.5 X10'3 (4.5-11.0)
[2019-12-10 00:52] LABS: UA COLLECTION TYPE CLN CATCH MIDSTREAM
[2019-12-10 00:53] LABS: BACTERIA,URINE FEW /HPF (Neg); SQUAMOUS EPITHELIAL CELL,UR MODERATE /LPF (FEW); WBC,URINE 0-4 /HPF (0-4)
[2019-12-10 00:54] LABS: YEAST FEW /HPF (NEGATIVE)
[2019-12-10 00:58] LABS: ALANINE AMINOTRANSFERASE 21 U/L (12-78); ALBUMIN 4.3 G/DL (3.4-5.0); ALBUMIN/GLOBULIN RATIO 1.2 (1.1-1.5); ALKALINE PHOSPHATASE 72 IU/L (46-116); ANION GAP 9 (8-16); ASPARTATE AMINO TRANSFERASE 12 U/L (10-37); BILIRUBIN,TOTAL 0.8 MG/DL (0.1-1.0); BLOOD UREA NITROGEN 10 MG/DL (7-18); BUN/CREATININE RATIO 12.8 (6.6-38.0); CALCIUM 10.1 MG/DL (8.5-10.1); CHLORIDE 96 MMOL/L (99-107); CHOLESTEROL 260 MG/DL (0-200); CREATININE 0.78 MG/DL (0.40-0.90); GLUCOSE 150 MG/DL (70-104); HDL CHOLESTEROL 43 MG/DL (35-60); LDL CHOLESTEROL 156 MG/DL (50-100); LIPASE 290 U/L (73-393); SODIUM 133 MMOL/L (135-145); TOTAL CARBON DIOXIDE 27.9 MMOL/L (24-32); TOTAL PROTEIN 7.9 G/DL (6.4-8.2); TRIGLYCERIDES 287 MG/DL (20-135); eGFR 77 ML/MIN
[2019-12-10 01:15] LABS: POTASSIUM 2.9 MMOL/L (3.5-5.1)
[2019-12-10 01:16] LABS: ETHANOL < 0.010 GM/DL (0.0-0.010)
--- NOTE | 2019-12-10 01:18 | NUR ---
k 2.9, dr. barnhart aware.
[2019-12-10] MEDS ORDERED: magnesium oxide 400mg tablet PO ONE ×2 (01:20→01:45)
[2019-12-10] MEDS ORDERED: potassium Cl 20 mEq SR tablet PO ONE (01:20)
[2019-12-10] MEDS ORDERED: ondansetron/PF 4mg/2ml inj IV ONE (01:25)
[2019-12-10] MEDS ORDERED: pantoprazole 40 MG vial IV ONE (01:35)
[2019-12-10] MEDS ORDERED: famotidine/PF 10 mg/ml inj IV ONE (01:35)
[2019-12-10] MEDS ORDERED: ketorolac tromethamine 15mg/ml inj. IV ONE (01:35)
--- NOTE | 2019-12-10 01:40 | NUR ---
dr. barnhart updated that pt continues to be in pain of 8 out of 10 to upper abdomen. States this is the worst pain she has experienced , comparinig this episode to an episode of pancreatitis. States has not taken any of her home meds for 24 hrs d/t pain and nausea. Pt with an extensive list of scheduled medications. Toradol ordered.
--- NOTE | 2019-12-10 01:40 | NUR ---
Pt was taken to CT of abd. Just returned from CT. Protonix, pepcid ordered.
[2019-12-10] MEDS ORDERED: morphine 4 MG/ML inj SYRINge IV ONE (02:30)
--- NOTE | 2019-12-10 02:30 | NUR ---
Pt still with no relief from her pain, remains [address] Nath ordering morphine. Awaiting CT results.
[2019-12-10] MEDS ORDERED: ONDA4TAB6 PO (02:36)
[2019-12-10] MEDS ORDERED: POTA20TA19 PO (02:36)
[2019-12-10] MEDS ORDERED: HYDR-3965 PO (02:36)
[2019-12-10 03:11] VITALS: BP 176/90
== END 2019-12-10 03:18 | disposition home or self-care (01) ==
LOC: ER 00:08
DX: D73.4 Cyst of spleen (principal); E87.6 Hypokalemia; E78.00 Pure hypercholesterolemia, unspecified; I10 Essential (primary) hypertension; J44.9 Chronic obstructive pulmonary disease, unspecified; E11.42 Type 2 diabetes mellitus with diabetic polyneuropathy; G47.30 Sleep apnea, unspecified; Z86.711 Personal history of pulmonary embolism; M19.90 Unspecified osteoarthritis, unspecified site; G89.29 Other chronic pain; F41.9 Anxiety disorder, unspecified; F31.9 Bipolar disorder, unspecified; F12.90 Cannabis use, unspecified, uncomplicated; F17.200 Nicotine dependence, unspecified, uncomplicated; Z86.14 Personal history of Methicillin resistant Staphylococcus aureus infection; Z90.49 Acquired absence of other specified parts of digestive tract; Z90.710 Acquired absence of both cervix and uterus; Z98.890 Other specified postprocedural states; Z60.2 Problems related to living alone; Z88.8 Allergy status to other drugs, medicaments and biological substances; Z88.2 Allergy status to sulfonamides; Z88.1 Allergy status to other antibiotic agents; Z79.82 Long term (current) use of aspirin; Z79.899 Other long term (current) drug therapy
CPT/HCPCS: 74176; 80053; 80061; 80320; 81001; 83690; 85025; 96374; 96375; 99285; C9113; J1885; J2270; J2405; J3490

== ENCOUNTER 2020-01-11 21:55 | Emergency (ER) | payer MEDICARE, MEDICAID ==
[~2020-01-11] VITALS: Ht 167.6 cm; Wt 113.6 kg
[~2020-01-11 21:55] MED LIST changes: +HYDR-3965 PO; +ONDA4TAB6 PO
[2020-01-11 23:17] LABS: BASOPHILS # (AUTO) 0.1 X10'3 (0-0.2); BASOPHILS % (AUTO) 0.6 % (0-1); EOSINOPHILS # (AUTO) 0.2 X10'3 (0-0.9); EOSINOPHILS % (AUTO) 1.4 % (0-6); HEMATOCRIT 35.2 % (35.0-45.0); HEMOGLOBIN 11.7 g/dl (12.0-16.0); LYMPHOCYTES # (AUTO) 2.2 X10'3 (1.1-4.8); LYMPHOCYTES % (AUTO) 15.9 % (21-51); MEAN CORPUSCULAR HGB CONC 33.1 g/dL (33.0-36.5); MEAN CORPUSCULAR VOLUME 96.7 FL (78-98); MEAN PLATELET VOLUME 7.5 FL (7.4-10.4); MONOCYTES # (AUTO) 0.9 X10'3 (0-0.9); MONOCYTES % (AUTO) 6.2 % (2-12); NEUTROPHILS # (AUTO) 10.6 X10'3 (1.8-7.7); NEUTROPHILS % (AUTO) 75.9 % (42-75); PLATELET COUNT 300 X10'3 (140-440); RED BLOOD COUNT 3.64 X10'6 (4.20-5.60)
[2020-01-11] MEDS ORDERED: CLOT30CR24 TOP (23:17)
[2020-01-11 23:32] VITALS: BP 118/47
[2020-01-11 23:34] LABS: ALANINE AMINOTRANSFERASE 18 U/L (12-78); ALBUMIN 3.9 G/DL (3.4-5.0); ALBUMIN/GLOBULIN RATIO 1.2 (1.1-1.5); ALKALINE PHOSPHATASE 70 IU/L (46-116); ANION GAP 6 (8-16); ASPARTATE AMINO TRANSFERASE 8 U/L (10-37); BILIRUBIN,TOTAL 0.3 MG/DL (0.1-1.0); BLOOD UREA NITROGEN 13 MG/DL (7-18); BUN/CREATININE RATIO 13.4 (6.6-38.0); CALCIUM 10.2 MG/DL (8.5-10.1); CHLORIDE 104 MMOL/L (99-107); CREATININE 0.97 MG/DL (0.40-0.90); GLUCOSE 111 MG/DL (70-104); POTASSIUM 3.1 MMOL/L (3.5-5.1); SODIUM 138 MMOL/L (135-145); TOTAL CARBON DIOXIDE 27.8 MMOL/L (24-32); TOTAL PROTEIN 7.2 G/DL (6.4-8.2); eGFR 60 ML/MIN
== END 2020-01-11 23:33 | disposition home or self-care (01) ==
LOC: ER 21:56
DX: B37.3 Candidiasis of vulva and vagina (principal); G62.9 Polyneuropathy, unspecified; E78.00 Pure hypercholesterolemia, unspecified; I10 Essential (primary) hypertension; J44.9 Chronic obstructive pulmonary disease, unspecified; E11.9 Type 2 diabetes mellitus without complications; G89.29 Other chronic pain; F41.9 Anxiety disorder, unspecified; F31.9 Bipolar disorder, unspecified; F32.9 Major depressive disorder, single episode, unspecified; I26.99 Other pulmonary embolism without acute cor pulmonale; E07.9 Disorder of thyroid, unspecified; K85.90 Acute pancreatitis without necrosis or infection, unspecified; F12.10 Cannabis abuse, uncomplicated; Z88.2 Allergy status to sulfonamides; Z88.1 Allergy status to other antibiotic agents; Z88.8 Allergy status to other drugs, medicaments and biological substances
CPT/HCPCS: 36415; 80053; 85025; 99284

== ENCOUNTER 2020-04-13 11:59 | Emergency (ER) | payer OTHER, MEDICAID ==
[~2020-04-13] VITALS: Ht 157.5 cm; Wt 104.5 kg
[~2020-04-13 11:59] MED LIST changes: +CLOT30CR24 TOP; -HYDR-3965 PO
[2020-04-13 12:13] VITALS: BP 144/94
[2020-04-13] MEDS ORDERED: LIDOcaine 1% W/epiNEPHrine 1:200,000 10ml vial IJ ONE (14:45)
[2020-04-13] MEDS ORDERED: CEPH250T PO (15:09)
== END 2020-04-13 15:24 | disposition home or self-care (01) ==
LOC: ER 11:59
DX: L02.214 Cutaneous abscess of groin (principal); E11.42 Type 2 diabetes mellitus with diabetic polyneuropathy; E78.00 Pure hypercholesterolemia, unspecified; I10 Essential (primary) hypertension; J44.9 Chronic obstructive pulmonary disease, unspecified; F12.90 Cannabis use, unspecified, uncomplicated; G47.30 Sleep apnea, unspecified; Z86.14 Personal history of Methicillin resistant Staphylococcus aureus infection; Z88.1 Allergy status to other antibiotic agents; Z88.2 Allergy status to sulfonamides; Z88.8 Allergy status to other drugs, medicaments and biological substances; Z79.82 Long term (current) use of aspirin; Z79.899 Other long term (current) drug therapy; Z86.711 Personal history of pulmonary embolism; Z87.01 Personal history of pneumonia (recurrent); Z90.49 Acquired absence of other specified parts of digestive tract; Z90.710 Acquired absence of both cervix and uterus
CPT/HCPCS: 96374; 99283

== ENCOUNTER 2022-10-06 15:11 | Emergency (ER) | payer MEDICARE, MEDICAID ==
[~2022-10-06] VITALS: Ht 198.1 cm; Wt 78.8 kg
[~2022-10-06 15:11] MED LIST changes: -ADAL40PE SQ; +ADAL40PE5 SQ; -AMLO2.5T5 PO; -ASPI81TA52 PO; -ATOR40TA72 PO; -BUPR300T53 PO; -CLOT30CR24 TOP; -DICL100G30 TP; +DICL100G59 TP; -FURO-150 PO; -HYDR25TA4 PO; -LACT1CAP26 PO; +LEVO100T9 PO; -LEVO150T8 PO; +LITH150C8 PO; -LITH300C PO; -LOSA100T57 PO; +LOSA50TA64 PO; -ONDA4TAB6 PO; -POTA8CAP20 PO; +TIZA-205 PO; -VORT10TA PO
[2022-10-06 15:40] VITALS: BP 179/100; PULSE 107; RESP 18; TEMP 98.1; O2SAT 99
== END 2022-10-07 00:50 | disposition left against medical advice (07) ==
LOC: ER 15:11
DX: F41.9 Anxiety disorder, unspecified (principal); Z53.21 Procedure and treatment not carried out due to patient leaving prior to being seen by health care provider
CPT/HCPCS: 99281

== ENCOUNTER 2023-01-23 07:50 | Emergency (ER) | payer MEDICARE, MEDICAID ==
[~2023-01-23] VITALS: Ht 167.6 cm; Wt 77.3 kg
[2023-01-23 07:59] VITALS: BP 170/94; PULSE 104; RESP 20; TEMP 97.9; O2SAT 98
[2023-01-23] MEDS ORDERED: CLIN300C3 PO (08:43)
[2023-01-23] MEDS ORDERED: DOXY-411 PO (08:43)
== END 2023-01-23 09:03 | disposition home or self-care (01) ==
LOC: ER 07:51
DX: L03.312 Cellulitis of back [any part except buttock and flank] (principal); E78.00 Pure hypercholesterolemia, unspecified; I10 Essential (primary) hypertension; E11.9 Type 2 diabetes mellitus without complications; M19.90 Unspecified osteoarthritis, unspecified site; F15.90 Other stimulant use, unspecified, uncomplicated; F12.90 Cannabis use, unspecified, uncomplicated; Z88.2 Allergy status to sulfonamides; Z88.6 Allergy status to analgesic agent; Z88.1 Allergy status to other antibiotic agents; Z88.8 Allergy status to other drugs, medicaments and biological substances; Z79.899 Other long term (current) drug therapy; Z79.2 Long term (current) use of antibiotics; Z90.710 Acquired absence of both cervix and uterus
CPT/HCPCS: 82948; 99283

== ENCOUNTER 2023-05-09 07:40 | Inpatient (IN) | payer MEDICAID, MEDICARE ==
[~2023-05-09] VITALS: Ht 168.9 cm; Wt 103.3 kg
[2023-05-09 11:24] LABS: BASOPHILS # (AUTO) 0.1 X10'3 (0-0.2); BASOPHILS % (AUTO) 1.1 % (0-1); EOSINOPHILS # (AUTO) 0.2 X10'3 (0-0.9); EOSINOPHILS % (AUTO) 2.4 % (0-6); HEMATOCRIT 36.9 % (35.0-45.0); LYMPHOCYTES # (AUTO) 1.4 X10'3 (1.1-4.8); LYMPHOCYTES % (AUTO) 19.4 % (21-51); MEAN CORPUSCULAR HEMOGLOBIN 31.5 PG (27.0-31.0); MEAN CORPUSCULAR HGB CONC 32.5 g/dL (33.0-36.5); MEAN PLATELET VOLUME 7.3 FL (7.4-10.4); MONOCYTES # (AUTO) 0.5 X10'3 (0-0.9); MONOCYTES % (AUTO) 6.7 % (2-12); NEUTROPHILS # (AUTO) 5.2 X10'3 (1.8-7.7); NEUTROPHILS % (AUTO) 70.4 % (42-75); PLATELET COUNT 249 X10'3 (140-440); WHITE BLOOD COUNT 7.3 X10'3 (4.5-11.0)
[2023-05-09] MEDS: furosemide 40mg/4ml inj IV ONE (11:33)
[2023-05-09 13:28] LABS: ALBUMIN 3.2 G/DL (3.4-5.0); ANION GAP 5 (8-16); BLOOD UREA NITROGEN 32 MG/DL (7-18); BUN/CREATININE RATIO 36.4 (10.0-20.0); CALCIUM 9.1 MG/DL (8.5-10.1); CHLORIDE 105 MMOL/L (99-107); CREATININE 0.88 MG/DL (0.40-0.90); GLUCOSE 118 MG/DL (70-104); PRO BRAIN NATRIURETIC PEPTIDE 4185 PG/ML (0-125); SODIUM 141 MMOL/L (135-145); TOTAL CARBON DIOXIDE 30.6 MMOL/L (24-32); eCRCL 66 ML/MIN; eGFR 66 ML/MIN
[2023-05-09 13:34] LABS: POTASSIUM 5.1 MMOL/L (3.5-5.1)
[2023-05-09 14:24] LABS: D-DIMER 1.27 MG/L FEU (0-0.50)
[2023-05-09] MEDS ORDERED: HYDROcodone/acetaminophen 5mg/325mg tablet PO PRN (16:25)
[2023-05-09] MEDS ORDERED: ipratropium/albuterol 3ml nebule NEB PRN (16:25)
[2023-05-09] MEDS ORDERED: ondansetron/PF 4mg/2ml inj IV PRN (16:25)
[2023-05-09] MEDS ORDERED: bisacodyl 10mg suppository rectal RC PRN (16:25)
[2023-05-09] MEDS ORDERED: ondansetron 4mg rapidly disintigrating tab PO PRN (16:25)
[2023-05-09] MEDS ORDERED: acetaminophen 650mg rectal suppository RC PRN (16:25)
[2023-05-09] MEDS ORDERED: magnesium hydroxide 30ml (MOM) UD suspension PO PRN (16:25)
[2023-05-09] MEDS ORDERED: morphine 2 MG/ML inj. syringe IV PRN ×2 (16:25)
[2023-05-09] MEDS ORDERED: HYDROcodone/acetaminophen 10/325mg tab PO PRN (16:25)
[2023-05-09] MEDS ORDERED: diphenhydrAMINE 50 mg/ml inj IV PRN (16:25)
[2023-05-09] MEDS ORDERED: mag hydrox/Alum hydrox/simeth 30ml oral suspension PO PRN (16:25)
[2023-05-09] MEDS ORDERED: acetaminophen 325mg tablet PO PRN ×2 (16:25)
[2023-05-09] MEDS ORDERED: diphenhydrAMINE 25mg capsule PO PRN (16:25)
[2023-05-09 17:10] VITALS: PULSE 92; RESP 18; O2SAT 95
[2023-05-09] MEDS ORDERED: nitroGLYCERIN 0.4mg SUBLingual tab SL PRN (17:20)
[2023-05-09] MEDS ORDERED: dextrose 50%-water 50ml dispensing syringe IV PRN ×2 (17:20)
[2023-05-09] MEDS ORDERED: glucagon, human recombinant 1mg kit SUBCUT PRN (17:20)
[2023-05-09] MEDS ORDERED: metoprolol tartrate 1mg/ml inj IV PRN (17:20)
[2023-05-09] MEDS ORDERED: insulin Lispro (HumaLOG) vial - multi-dose SQ SCH (17:20)
[2023-05-09] MEDS ORDERED: regadenoson 0.4mg/5ml syringe IV PRN (17:20)
[2023-05-09] MEDS ORDERED: DEXTROSE 15 GM of carb/4 tabs (each vial/BOTTLE has 4 tablets) PO PRN ×2 (17:20)
[2023-05-09] MEDS ORDERED: aminophylline 250mg/10ml inj. IV PRN (17:20)
[2023-05-09 17:31] LABS: MAGNESIUM 2.2 MG/DL (1.5-2.4); PHOSPHORUS 4.7 MG/DL (2.3-4.5)
[2023-05-09 17:55] LABS: HEMOGLOBIN A1C 6.3 % (4.5-6.2)
[2023-05-09 17:55] LABS: APTT 25 SECONDS (22-32); INR 1.1 INR; PROTHROMBIN TIME 11.3 SECONDS (9.0-12.0)
[2023-05-09 18:00] LABS: THYROID STIMULATING HORMONE 4.56 ulU/ml (0.34-4.50)
[2023-05-09] MEDS: MESSAGE TO PHARMACY PO ONE (18:09)
[2023-05-09 20:00] VITALS: BP 141/93; PULSE 105; RESP 20; TEMP 97.3; O2SAT 96
[2023-05-09] MEDS ORDERED: temazepam 15mg capsule PO PRN (21:00)
[2023-05-09] MEDS: insulin glargine (Lantus) pen - multi-dose SQ SCH (21:00)
[2023-05-09 21:02] VITALS: PULSE 92; RESP 18; O2SAT 98
[2023-05-09] MEDS: docusate sod 100mg capsule PO SCH (21:25)
[2023-05-09] MEDS: furosemide 40mg/4ml inj IV SCH (21:26)
[2023-05-10] MEDS: heparin, porcine 5000 units/ml vial SQ SCH
[2023-05-10] MEDS ORDERED: TRAZ-251 PO (00:16)
[2023-05-10 06:31] LABS: BASOPHILS % (AUTO) 0.6 % (0-1); EOSINOPHILS # (AUTO) 0.2 X10'3 (0-0.9); HEMOGLOBIN 11.5 g/dl (12.0-16.0); LYMPHOCYTES # (AUTO) 1.9 X10'3 (1.1-4.8); LYMPHOCYTES % (AUTO) 28.1 % (21-51); MEAN CORPUSCULAR HEMOGLOBIN 31.5 PG (27.0-31.0); MEAN CORPUSCULAR HGB CONC 32.8 g/dL (33.0-36.5); MEAN CORPUSCULAR VOLUME 96.1 FL (78-98); MEAN PLATELET VOLUME 7.5 FL (7.4-10.4); MONOCYTES # (AUTO) 0.5 X10'3 (0-0.9); MONOCYTES % (AUTO) 7.7 % (2-12); NEUTROPHILS # (AUTO) 4.1 X10'3 (1.8-7.7); NEUTROPHILS % (AUTO) 60.6 % (42-75); PLATELET COUNT 234 X10'3 (140-440); RED BLOOD COUNT 3.64 X10'6 (4.20-5.60); RED CELL DISTRIBUTION WIDTH 16.1 % (11.5-14.5); WHITE BLOOD COUNT 6.8 X10'3 (4.5-11.0)
[2023-05-10 06:52] LABS: ALANINE AMINOTRANSFERASE 25 U/L (12-78); ALBUMIN 2.6 G/DL (3.4-5.0); ALBUMIN/GLOBULIN RATIO 0.9 (1.1-1.5); ALKALINE PHOSPHATASE 76 IU/L (46-116); ANION GAP 5 (8-16); ASPARTATE AMINO TRANSFERASE 18 U/L (10-37); BILIRUBIN,TOTAL 0.4 MG/DL (0.1-1.0); BLOOD UREA NITROGEN 28 MG/DL (7-18); BUN/CREATININE RATIO 29.8 (10.0-20.0); CALCIUM 8.3 MG/DL (8.5-10.1); CHLORIDE 106 MMOL/L (99-107); CHOL/HDL RATIO 2.6 (0.00-4.99); CHOLESTEROL 139 MG/DL (0-200); CREATININE 0.94 MG/DL (0.40-0.90); GLUCOSE 98 MG/DL (70-104); HDL CHOLESTEROL 53 MG/DL (35-60); POTASSIUM 3.7 MMOL/L (3.5-5.1); SODIUM 143 MMOL/L (135-145); TOTAL CARBON DIOXIDE 31.7 MMOL/L (24-32); TOTAL PROTEIN 5.6 G/DL (6.4-8.2); TRIGLYCERIDES 78 MG/DL (20-135); eCRCL 63 ML/MIN; eGFR 61 ML/MIN
[2023-05-10 07:00] VITALS: BP 95/56; PULSE 66; RESP 16; TEMP 97.5; O2SAT 92
[2023-05-10 07:04] LABS: LDL CHOLESTEROL 67 MG/DL (50-100)
[2023-05-10 07:30] VITALS: BP 146/86; PULSE 77; RESP 14; TEMP 97.7; O2SAT 98
[2023-05-10 08:00] VITALS: RESP 16; O2SAT 98
[2023-05-10] MEDS: aspirin 81mg tab.chew PO SCH (08:12)
[2023-05-10] MEDS: nitroGLYCERIN 0.4mg/hour patch TD SCH (08:14)
[2023-05-10] MEDS: pantoprazole 40mg Tablet.DR PO SCH (08:15)
[2023-05-10] MEDS: nicotine 21mg patch - 24 hr TD SCH (08:29)
[2023-05-10] MEDS: pneumococcal 23-VAL P-sac vacc 25 mcg/0.5ml vial IMVAC ONE (10:02)
[2023-05-10] MEDS: FLU VACC QS2023-24(6MOS UP)/PF 60 MCG/0.5 ML SYRINGE IM ONE (10:02)
[2023-05-10 11:00] VITALS: BP 107/67; PULSE 82; RESP 15; TEMP 97.2; O2SAT 95
[2023-05-10] MEDS ORDERED: nystatin 15 GM powder TP SCH (20:00)
== END 2023-05-10 11:55 | disposition home or self-care (01) | DRG 280 ==
LOC: ER 07:40 → ED HOLD 16:27 → PCU 3S 20:09
PROVIDERS: ADMIT Family Medicine; ATTEND Family Medicine
DX: I13.0 Hypertensive heart and chronic kidney disease with heart failure and stage 1 through stage 4 chronic kidney disease, or unspecified chronic kidney disease (principal); I50.33 Acute on chronic diastolic (congestive) heart failure; I21.A1 Myocardial infarction type 2; N17.9 Acute kidney failure, unspecified; J44.1 Chronic obstructive pulmonary disease with (acute) exacerbation; F17.210 Nicotine dependence, cigarettes, uncomplicated; Z20.822 Contact with and (suspected) exposure to COVID-19; E78.00 Pure hypercholesterolemia, unspecified; E11.42 Type 2 diabetes mellitus with diabetic polyneuropathy; E11.22 Type 2 diabetes mellitus with diabetic chronic kidney disease; E03.9 Hypothyroidism, unspecified; E66.01 Morbid (severe) obesity due to excess calories; F41.9 Anxiety disorder, unspecified; G89.4 Chronic pain syndrome; F31.9 Bipolar disorder, unspecified; N18.9 Chronic kidney disease, unspecified; G47.33 Obstructive sleep apnea (adult) (pediatric); Z88.2 Allergy status to sulfonamides; Z88.8 Allergy status to other drugs, medicaments and biological substances; Z86.711 Personal history of pulmonary embolism; Z79.899 Other long term (current) drug therapy; Z90.710 Acquired absence of both cervix and uterus; Z90.49 Acquired absence of other specified parts of digestive tract; Z68.35 Body mass index [BMI] 35.0-35.9, adult
CPT/HCPCS: 36415; 71045; 71250; 80048; 80053; 80061; 82948; 83036; 83605; 83735; 83880; 84100; 84145; 84443; 84484; 85025; 85379; 85610; 85730; 87040; 87081; 87502; 87503; 87811; 90686; 90732; 93005; 94760; 96374; 99285; G0378; J1644; J1815; J1940